=== PATIENT | male | born 1950 | race Caucasian/White ===

== ENCOUNTER 2018-09-26 17:57 | Observation (INO) | payer MEDICARE ==
[~2018-09-26] VITALS: Ht 162.6 cm; Wt 94.8 kg
[2018-09-26 19:20] LABS: BASOPHILS % (AUTO) 0.4 % (0.0-5.0); EOSINOPHILS % (AUTO) 2.4 % (0.0-8.0); HEMATOCRIT 44.2 % (42-54); MEAN CORPUSCULAR HEMOGLOBIN 30.5 pg (27.0-33.0); MEAN CORPUSCULAR HGB CONC 33.2 g/dL (32.0-36.0); MEAN CORPUSCULAR VOLUME 91.9 fL (79-99); MONOCYTES % (AUTO) 10.8 % (3.0-13.0); NEUTROPHILS % (AUTO) 72.4 % (40.0-77.0); NUCLEATED RED BLOOD CELLS 0.1 % (0.0-0.19); PLATELET COUNT (AUTO) 143 K/uL (130-400); RED BLOOD CELL COUNT(AUTO) 4.81 MIL/uL (4.50-6.20); RED CELL DISTRIBUTION WIDTH 16.3 % (11.0-15.5)
[2018-09-26 19:33] LABS: POTASSIUM 4.5 mmol/L (3.5-5.1)
[2018-09-26 19:38] LABS: ALBUMIN 3.6 g/dL (3.5-5.0); BILIRUBIN,TOTAL 0.5 mg/dL (0.2-1.0); CRP QUANTITATIVE 3.1 mg/L (0.00-9.0); TOTAL PROTEIN, SERUM 6.3 g/dL (6.0-8.3)
[2018-09-26 20:26] LABS: ERYTHROCYTE SEDIMENTATION RATE 1 MM/HR (0-20)
[2018-09-26] MEDS: SODIUM CHLORIDE 0.9% 1000ML 1,000 ML IV SCH (21:43)
[2018-09-26] MEDS ORDERED: ONDANSETRON HCL 4 MG/2 ML VIAL IV PRN (21:45)
[2018-09-26] MEDS ORDERED: ACETAMINOPHEN 325 MG TAB PO PRN ×2 (21:45)
[2018-09-26] MEDS ORDERED: MORPHINE SULFATE 2 MG/ML 1ML SYG IV PRN (21:45)
[2018-09-26 22:25] VITALS: BP 159/80
[2018-09-26] MEDS ORDERED: SODIUM CHLORIDE 0.9% 1000ML 1,000 ML IV ONE (22:51)
[2018-09-26 23:27] VITALS: BP 162/82
[2018-09-27] MEDS ORDERED: ALPR0.255 PO (00:10)
[2018-09-27] MEDS ORDERED: DULO60CA63 PO (00:19)
[2018-09-27] MEDS ORDERED: DORZ10DR14 OD (00:19)
[2018-09-27] MEDS ORDERED: DICL1TAB5 PO (00:19)
[2018-09-27] MEDS ORDERED: DEXT10TA4 PO (00:19)
[2018-09-27] MEDS ORDERED: HYDR-4068 PO (00:24)
[2018-09-27] MEDS ORDERED: LISI-613 PO (00:24)
[2018-09-27] MEDS ORDERED: FENT1PAT26 TD (00:24)
[2018-09-27] MEDS ORDERED: PREG100C PO (00:31)
[2018-09-27] MEDS ORDERED: MV-M1TAB2 PO (00:31)
[2018-09-27] MEDS ORDERED: S-AD400T2 PO (00:31)
[2018-09-27] MEDS ORDERED: OMEP20TA2 PO (00:31)
[2018-09-27] MEDS ORDERED: POTA5TAB PO (00:31)
[2018-09-27] MEDS ORDERED: TAMS-1 PO (00:31)
[2018-09-27] MEDS: SODIUM CHLORIDE 0.9% 1000ML 1,000 ML IV SCH ×3 (04:23→20:07)
[2018-09-27 04:30] VITALS: BP 151/79
[2018-09-27 04:48] LABS: BASOPHILS % (AUTO) 0.4 % (0.0-5.0); EOSINOPHILS % (AUTO) 3.4 % (0.0-8.0); HEMATOCRIT 42.9 % (42-54); LYMPHOCYTES % (AUTO) 16.7 % (21.0-51.0); MEAN CORPUSCULAR HEMOGLOBIN 29.3 pg (27.0-33.0); MEAN CORPUSCULAR VOLUME 91.6 fL (79-99); MONOCYTES % (AUTO) 12.3 % (3.0-13.0); NEUTROPHILS % (AUTO) 67.2 % (40.0-77.0); NUCLEATED RED BLOOD CELLS 0.1 % (0.0-0.19); PLATELET COUNT (AUTO) 118 K/uL (130-400); RED BLOOD CELL COUNT(AUTO) 4.68 MIL/uL (4.50-6.20); RED CELL DISTRIBUTION WIDTH 16.2 % (11.0-15.5); WHITE BLOOD COUNT (AUTO) 4.7 K/uL (4.8-10.8)
[2018-09-27 05:05] LABS: ALBUMIN 3.3 g/dL (3.5-5.0); BILIRUBIN,TOTAL 0.8 mg/dL (0.2-1.0); CREATININE 0.9 mg/dL (0.5-1.5); CRP QUANTITATIVE 6.2 mg/L (0.00-9.0); POTASSIUM 3.9 mmol/L (3.5-5.1); TOTAL PROTEIN, SERUM 5.9 g/dL (6.0-8.3)
[2018-09-27] MEDS: ZOSYN 3.375GM+NS 50ML 50 ML IV SCH ×3 (05:05→20:06)
[2018-09-27 05:56] LABS: ERYTHROCYTE SEDIMENTATION RATE 1 MM/HR (0-20)
[2018-09-27 07:56] VITALS: BP 160/101
[2018-09-27] MEDS: ENOXAPARIN SODIUM 30 MG/0.3 ML SQ SCH (08:11)
[2018-09-27 08:25] VITALS: BP 137/77
[2018-09-27] MEDS ORDERED: HYDROCODONE/ACETAMINOPHEN 10/325 MG TAB PO PRN (08:45)
[2018-09-27] MEDS ORDERED: FAMOTIDINE 20MG TAB 20 MG TAB PO SCH (09:00)
[2018-09-27] MEDS: ARTHROTEC PO SCH ×2 (09:00→20:11)
[2018-09-27] MEDS: TAMSULOSIN HCL 0.4 MG CAP.ER.24H PO SCH (09:00)
[2018-09-27] MEDS: DORZOLAMIDE HCL/TIMOLOL MALEAT DROPS 10 ML BOTTLE OD SCH ×2 (09:00→20:10)
[2018-09-27] MEDS: PREGABALIN 100 MG CAPSULE PO SCH ×2 (09:00→20:11)
[2018-09-27] MEDS: ADDERALL 10 MG PO SCH ×2 (09:00→20:10)
[2018-09-27] MEDS: DULOXETINE HCL 30 MG CAP PO SCH (09:00)
[2018-09-27] MEDS ORDERED: POTASSIUM CHLORIDE 10% ELIXIR 20 MEQ/15 ML UDCUP PO PRN ×2 (10:30)
[2018-09-27] MEDS ORDERED: POTASSIUM CHLORIDE 20 MEQ ERTAB PO PRN ×2 (10:30)
[2018-09-27] MEDS ORDERED: POTASSIUM CHLORIDE 20MEQ/100ML 100 ML IV PRN (10:30)
[2018-09-27] MEDS ORDERED: LIDOCAINE HCL-MPF 1% 2ML VIAL IVP PRN ×2 (10:30)
[2018-09-27] MEDS ORDERED: POTASSIUM CHLORIDE 10MEQ/100ML 100 ML IV PRN (10:30)
[2018-09-27] MEDS ORDERED: ALPRAZOLAM 0.25 MG TABLET PO PRN (10:30)
[2018-09-27 11:48] VITALS: BP 155/87
[2018-09-27 16:29] VITALS: BP 127/78
[2018-09-27] MEDS: LISINOPRIL 20 MG TABLET PO SCH (17:00)
[2018-09-27 19:42] VITALS: BP 151/69
[2018-09-27] MEDS: S ADENOSYLMETHIONINE SUL TOSYL 400 MG PO SCH (20:11)
[2018-09-27] MEDS ORDERED: PANTOPRAZOLE SODIUM 40 MG TABLET.DR PO SCH (21:00)
[2018-09-28 00:04] VITALS: BP 137/88
[2018-09-28] MEDS: SODIUM CHLORIDE 0.9% 1000ML 1,000 ML IV SCH (00:19)
[2018-09-28 04:00] VITALS: BP 107/56
[2018-09-28 04:32] LABS: BASOPHILS % (AUTO) 0.7 % (0.0-5.0); EOSINOPHILS % (AUTO) 3.5 % (0.0-8.0); HEMATOCRIT 39.6 % (42-54); LYMPHOCYTES % (AUTO) 17.2 % (21.0-51.0); MEAN CORPUSCULAR HEMOGLOBIN 30.8 pg (27.0-33.0); MEAN CORPUSCULAR HGB CONC 33.7 g/dL (32.0-36.0); MEAN CORPUSCULAR VOLUME 91.4 fL (79-99); MONOCYTES % (AUTO) 11.6 % (3.0-13.0); PLATELET COUNT (AUTO) 132 K/uL (130-400); RED BLOOD CELL COUNT(AUTO) 4.34 MIL/uL (4.50-6.20); RED CELL DISTRIBUTION WIDTH 15.9 % (11.0-15.5); WHITE BLOOD COUNT (AUTO) 4.6 K/uL (4.8-10.8)
[2018-09-28 04:44] LABS: POTASSIUM 4.2 mmol/L (3.5-5.1)
[2018-09-28] MEDS: ZOSYN 3.375GM+NS 50ML 50 ML IV SCH (05:09)
[2018-09-28 07:49] VITALS: BP 118/55
[2018-09-28] MEDS: LISINOPRIL 20 MG TABLET PO SCH (08:00)
[2018-09-28] MEDS ORDERED: [UNRECOGNIZED DRUG - OTHER] PO SCH (09:00)
[2018-09-28] MEDS ORDERED: COQ10 PO SCH (09:00)
[2018-09-28] MEDS: ARTHROTEC PO SCH (09:00)
[2018-09-28] MEDS: S ADENOSYLMETHIONINE SUL TOSYL 400 MG PO SCH (09:00)
[2018-09-28] MEDS ORDERED: LUTEIN PO SCH (09:00)
[2018-09-28] MEDS ORDERED: MV MN PO SCH (09:00)
[2018-09-28] MEDS: DULOXETINE HCL 30 MG CAP PO SCH (09:00)
[2018-09-28] MEDS ORDERED: LYCOPENE PO SCH (09:00)
[2018-09-28] MEDS: PREGABALIN 100 MG CAPSULE PO SCH (09:00)
[2018-09-28] MEDS: ENOXAPARIN SODIUM 30 MG/0.3 ML SQ SCH (09:00)
[2018-09-28] MEDS: TAMSULOSIN HCL 0.4 MG CAP.ER.24H PO SCH (09:00)
[2018-09-28] MEDS: DORZOLAMIDE HCL/TIMOLOL MALEAT DROPS 10 ML BOTTLE OD SCH (09:00)
[2018-09-28] MEDS: ADDERALL 10 MG PO SCH (09:00)
[2018-09-28 11:50] VITALS: BP 140/77
== END 2018-09-28 12:59 | disposition home or self-care (01) ==
LOC: EDH 17:57 → EDHIP 20:40 → 4AH 22:23
PROVIDERS: ADMIT Internal Medicine; ATTEND Internal Medicine
DX: M25.461 Effusion, right knee (principal); E78.5 Hyperlipidemia, unspecified; I10 Essential (primary) hypertension; M00.9 Pyogenic arthritis, unspecified; Z96.653 Presence of artificial knee joint, bilateral
CPT/HCPCS: 36415 ×3; 73562 ×2; 80048; 80053 ×2; 83605; 85025 ×3; 85651 ×2; 86140 ×2; 87040 ×2; 96365; 96366 ×2; 99284; G0378 ×40; J2543 ×4; J7030

== ENCOUNTER → 2019-08-29 | Outpatient (CLI) | payer MEDICARE ==
[~2019-08-29] MED LIST: ALPR0.255 PO; DEXT10TA4 PO; DICL1TAB5 PO; DORZ10DR14 OD; DULO60CA64 PO; FENT1PAT26 TD; HYDR-4068 PO; LISI-613 PO; MV-M1TAB2 PO; OMEP20TA2 PO; POTA5TAB PO; PREG100C PO; S-AD400T2 PO; TAMS-1 PO
== END | disposition home or self-care (01) ==
LOC: RAH 13:12
PROVIDERS: ATTEND Internal Medicine Critical Care Medicine
DX: M19.031 Primary osteoarthritis, right wrist (principal); M16.12 Unilateral primary osteoarthritis, left hip
CPT/HCPCS: 73090; 73502

== ENCOUNTER 2021-01-21 19:12 | Emergency (ER) | payer MEDICARE ==
[~2021-01-21 19:12] MED LIST changes: -LISI-613 PO; +LISI20TA24 PO
[2021-01-21] MEDS ORDERED: HYDROCODONE/ACETAMINOPHEN 5/325 MG TAB ONE (22:34)
[2021-01-21 22:49] LABS: BASOPHILS % (AUTO) 0.1 % (0.0-5.0); HEMATOCRIT 41.5 % (42-54); LYMPHOCYTES % (AUTO) 3.1 % (21.0-51.0); MEAN CORPUSCULAR HEMOGLOBIN 33.3 pg (27.0-33.0); MONOCYTES % (AUTO) 7.9 % (3.0-13.0); PLATELET COUNT (AUTO) 142 K/uL (130-400); RED BLOOD CELL COUNT(AUTO) 4.11 MIL/uL (4.50-6.20); RED CELL DISTRIBUTION WIDTH 13.2 % (11.0-15.5); WHITE BLOOD COUNT (AUTO) 9.2 K/uL (4.8-10.8)
[2021-01-21 22:57] LABS: CREATININE 1.5 mg/dL (0.5-1.5); POTASSIUM 4.3 mmol/L (3.5-5.1)
[2021-01-21 23:01] LABS: ALBUMIN 2.6 g/dL (3.5-5.0); BILIRUBIN,TOTAL 0.4 mg/dL (0.2-1.0); TOTAL PROTEIN, SERUM 6.1 g/dL (6.0-8.3)
[2021-01-22] MEDS ORDERED: ONDANSETRON ODT 4 MG TAB ONE (01:32)
[2021-01-22] MEDS ORDERED: HYDROMORPHONE 1 MG/1 ML AMP ONE (01:33)
== END 2021-01-22 02:04 | disposition home or self-care (01) ==
LOC: EDH 19:12
DX: M14.671 Charcot's joint, right ankle and foot (principal); E78.5 Hyperlipidemia, unspecified; I10 Essential (primary) hypertension; Z90.49 Acquired absence of other specified parts of digestive tract; Z88.8 Allergy status to other drugs, medicaments and biological substances
CPT/HCPCS: 36415; 73630; 80053; 85025; 87040 ×2; 96372; 99284; J1170

== ENCOUNTER → 2021-02-11 | Outpatient (CLI) | payer MEDICARE | END | disposition home or self-care (01) | LOC: RAH 07:51 | PROVIDERS: ATTEND Physical Medicine & Rehabilitation | DX: M14.671 Charcot's joint, right ankle and foot (principal); M86.8X7 Other osteomyelitis, ankle and foot | CPT/HCPCS: 73718 ==

== ENCOUNTER → 2021-06-07 | Outpatient (CLI) | payer MEDICARE ==
[2021-06-07 15:20] LABS: BASOPHILS % (AUTO) 0.4 % (0.0-5.0); EOSINOPHILS % (AUTO) 2.3 % (0.0-8.0); HEMATOCRIT 38.8 % (42-54); LYMPHOCYTES % (AUTO) 9.5 % (21.0-51.0); MEAN CORPUSCULAR HGB CONC 29.9 g/dL (32.0-36.0); MEAN CORPUSCULAR VOLUME 93.5 fL (79-99); MONOCYTES % (AUTO) 5.6 % (3.0-13.0); NEUTROPHILS % (AUTO) 81.5 % (40.0-77.0); PLATELET COUNT (AUTO) 200 K/uL (130-400); RED BLOOD CELL COUNT(AUTO) 4.15 MIL/uL (4.50-6.20); RED CELL DISTRIBUTION WIDTH 16.1 % (11.0-15.5); WHITE BLOOD COUNT (AUTO) 9.5 K/uL (4.8-10.8)
[2021-06-07 15:40] LABS: ALBUMIN 3.1 g/dL (3.5-5.0); BILIRUBIN,TOTAL 0.7 mg/dL (0.2-1.0); CREATININE 0.8 mg/dL (0.5-1.5); TOTAL PROTEIN, SERUM 5.9 g/dL (6.0-8.3)
== END | disposition home or self-care (01) ==
LOC: LAB 13:40
PROVIDERS: ATTEND Internal Medicine Infectious Disease
DX: J85.2 Abscess of lung without pneumonia (principal)
CPT/HCPCS: 36415; 80053; 85025

== ENCOUNTER → 2021-06-14 | Outpatient (CLI) | payer MEDICARE ==
[~2021-06-14] MED LIST changes: +IOHEXOL-350 50ML VIAL IV ONE
== END | disposition home or self-care (01) ==
LOC: RAH 10:56
PROVIDERS: ATTEND Internal Medicine Infectious Disease
DX: J85.2 Abscess of lung without pneumonia (principal); K44.9 Diaphragmatic hernia without obstruction or gangrene; I25.10 Atherosclerotic heart disease of native coronary artery without angina pectoris; K57.90 Diverticulosis of intestine, part unspecified, without perforation or abscess without bleeding
CPT/HCPCS: 71260; Q9967